=== PATIENT | male | born 1955 | race African-American/Black ===

== ENCOUNTER 2022-01-30 09:55 | Outpatient (RCR) | payer MEDICARE, MEDICAID | END 2022-02-03 | disposition home or self-care (01) | LOC: ONC 09:55 | PROVIDERS: ATTEND Radiology Radiation Oncology | DX: C34.2 Malignant neoplasm of middle lobe, bronchus or lung (principal); J44.9 Chronic obstructive pulmonary disease, unspecified; I13.0 Hypertensive heart and chronic kidney disease with heart failure and stage 1 through stage 4 chronic kidney disease, or unspecified chronic kidney disease; I73.9 Peripheral vascular disease, unspecified; I50.22 Chronic systolic (congestive) heart failure; K70.30 Alcoholic cirrhosis of liver without ascites; N18.9 Chronic kidney disease, unspecified; E78.00 Pure hypercholesterolemia, unspecified; Z86.73 Personal history of transient ischemic attack (TIA), and cerebral infarction without residual deficits; Z80.1 Family history of malignant neoplasm of trachea, bronchus and lung; F17.210 Nicotine dependence, cigarettes, uncomplicated; Z79.82 Long term (current) use of aspirin; Z79.899 Other long term (current) drug therapy | CPT/HCPCS: 99204 ==

== ENCOUNTER 2022-02-12 14:04 | Outpatient (RCR) | payer MEDICARE, MEDICAID, OTHER | END 2022-03-06 | disposition home or self-care (01) | LOC: ONC 14:04 | PROVIDERS: ATTEND Radiology Radiation Oncology | DX: Z51.0 Encounter for antineoplastic radiation therapy (principal); C34.2 Malignant neoplasm of middle lobe, bronchus or lung | CPT/HCPCS: 77293; 77300; 77301; 77334; 77338; 77370; 77373; 77470 ==

== ENCOUNTER 2022-09-26 10:33 | Outpatient (RCR) | payer MEDICARE, MEDICAID, OTHER | END 2022-10-04 | disposition home or self-care (01) | LOC: ONC 10:33 | PROVIDERS: ATTEND Radiology Radiation Oncology | DX: C34.2 Malignant neoplasm of middle lobe, bronchus or lung (principal) | CPT/HCPCS: 99213 ==